=== PATIENT | male | born 1955 | race Caucasian/White ===

== ENCOUNTER 2016-05-04 14:50 | Observation (INO) | payer OTHER ==
[2016-05-04] MEDS ORDERED: Zofran 4 MG/2 ML VIAL IV ONE (15:13)
[2016-05-04] MEDS ORDERED: Sodium Chloride 0.9% 1000 ML 1,000 ML IV STA (15:13)
[2016-05-04] MEDS ORDERED: Sodium Chloride 0.9% 1000 ML 1,000 ML ONE (15:14)
[2016-05-04] MEDS ORDERED: Zofran 4 MG/2 ML VIAL ONE (15:14)
--- NOTE | 2016-05-04 15:19 | ERPHSYRPT ---
- History of Present Illness Time Seen by Provider: 05/04/16 15:09 Historian: patient, family () Patient Subjective Stated Complaint: vomiting and diarrhea since 1630 yesterday Triage Nursing Assessment: started at 1630 yesterday. vomiting and diarrhea since. c/o generalized achiness to legs, back, head, and abd. no fever. abd soft. bs hypoactive. Physician History: CC: vomiting Hx: 60 y/o healthy male patient with vomiting since yesterday. He has some non- bloody diarrhea. Minimal fever. Some cramping abdominal pain. Hx of prior ileus. Feels dry. A little light-headed. Symptoms moderately severe. Severity of Pain-Max: moderate Severity of Pain-Current: moderate Allergies/Adverse Reactions: NKA Allergy (Verified 05/04/16 14:56) Home Medications: Ezetimibe/Simvastatin [Vytorin 10-20 mg Tablet] 1 each PO DAILY 05/04/16 [ History] Hx Tetanus, Diphtheria Vaccination/Date Given: Yes Hx Influenza Vaccination/Date Given: Yes Hx Pneumococcal Vaccination/Date Given: No Immunizations Up to Date: Yes - Review of Systems Constitutional: Fever (low grade), Fatigue, Malaise Eyes: No Symptoms Ears, Nose, & Throat: No Symptoms Respiratory: No Cough Abdominal/Gastrointestinal: Nausea, Vomiting, Diarrhea Genitourinary Symptoms: No Dysuria Musculoskeletal: Myalgias Skin: No Rash Neurological: Headache (mild) All Other Systems: Reviewed and Negative - Past Medical History Pertinent Past Medical History: Yes Cardiac History: High Cholesterol Other Medical History: small bowel obstruction x2 - Past Surgical History Past Surgical History: Yes Other Surgical History: tonsils - Social History Smoking Status: Current every day smoker Exposure to second hand smoke: No Drug Use: none Patient Lives Alone: No Significant Family History: no pertinent family hx - Nursing Vital Signs Nursing Vital Signs: Initial Vital Signs Temperature 98.9 F Temperature Source Oral Pulse Rate 87 Respiratory Rate 18 Blood Pressure [Left Arm] 122/79 Pain Intensity 8 - Physical Exam General Appearance: alert, other (pale appearing) Eye Exam: PERRL/EOMI Ears, Nose, Throat Exam: normal ENT inspection, dry mucous membranes Neck Exam: normal inspection, non-tender, supple Respiratory Exam: normal breath sounds, lungs clear Cardiovascular Exam: regular rate/rhythm, tachycardia Gastrointestinal/Abdomen Exam: soft, No tenderness, No distention, No mass, No guarding Extremity Exam: normal inspection, No pedal edema Neurologic Exam: alert, oriented x 3, cooperative, sensation nml, No motor deficits Skin Exam: warm, dry, pale, No rash SpO2 Interpretation: normal SpO2: 95 Oxygen Delivery: Room Air - Course Nursing assessment & vital signs reviewed: Yes - Radiology Exams AAS X-ray Interpretation: Discussed w/ radiologist ([facility]BO) - CT Exams abd/pelvis CT Interpretation: Tele-radiologist Report (ileus vs enteritis) Ordered Tests: Active Orders 24 hr Category Date Time Status IV Insertion STAT Care 05/04/16 15:13 Active ABDOMEN AND PELVIS W CONTRAST [CT] Stat Exams 05/04/16 15:52 Completed OBSTR/ACUTE ABDOMEN SERIES Stat Exams 05/04/16 15:14 Completed CBC W DIFF Stat Lab 05/04/16 15:20 Completed CMP Stat Lab 05/04/16 15:20 Completed Manual Differential NC Stat Lab 05/04/16 15:20 Completed UA Stat Lab 05/04/16 15:13 Ordered Medication Summary Discontinued Medications Generic Name Dose Route Start Last Admin Trade Name Freq PRN Reason Stop Dose Admin Diphenhydramine HCl 25 mg 05/04/16 16:53 05/04/16 16:57 Benadryl 50 Mg/Ml IV 05/04/16 16:54 25 mg STAT ONE Administration Diphenhydramine HCl Confirm 05/04/16 16:55 Benadryl 50 Mg/Ml Administered 05/04/16 16:56 Dose 50 mg .ROUTE .STK-MED ONE Hydromorphone HCl 1 mg 05/04/16 16:53 05/04/16 16:57 Hydromorphone 1 Mg/Ml Ampule IV 05/04/16 16:54 1 mg STAT ONE Administration Hydromorphone HCl Confirm 05/04/16 16:55 Hydromorphone 1 Mg/Ml Ampule Administered 05/04/16 16:56 Dose 1 mg .ROUTE .STK-MED ONE Sodium Chloride 1,000 mls @ 999 mls/hr 05/04/16 15:13 05/04/16 15:22 Sodium Chloride 0.9% 1000 Ml IV 05/04/16 16:13 999 mls/hr .Q1H1M STA Administration Sodium Chloride Confirm 05/04/16 15:14 Sodium Chloride 0.9% 1000 Ml Administered 05/04/16 15:15 Dose 1,000 mls @ ud .ROUTE .STK-MED ONE Lactated Ringer's 1,000 mls @ 999 mls/hr 05/04/16 16:26 05/04/16 16:27 Lactated Ringers IV 05/04/16 17:26 999 mls/hr .Q1H1M ONE Administration Lactated Ringer's Confirm 05/04/16 16:27 Lactated Ringers Administered 05/04/16 16:28 Dose 1,000 mls @ ud IV .STK-MED ONE Ondansetron HCl 4 mg 05/04/16 15:13 05/04/16 15:22 Zofran 4 Mg/2 Ml Vial IV 05/04/16 15:14 4 mg STAT ONE Administration Ondansetron HCl Confirm 05/04/16 15:14 Zofran 4 Mg/2 Ml Vial Administered 05/04/16 15:15 Dose 4 mg .ROUTE .STK-MED ONE Lab/Rad Data: Laboratory Result Diagrams 05/04/16 15:20 05/04/16 15:20 Laboratory Results 05/04/16 05/04/16 Range/Units 15:20 15:20 WBC 12.0 H (4.0-10.5) K/mm3 RBC 5.06 (4.1-5.6) M/mm3 Hgb 15.6 (12.5-18.0) gm/dl Hct 45.9 (42-50) % MCV 90.7 (78-100) fl MCH 30.8 (26-32) pg MCHC 34.0 (32-36) g/dl RDW 13.8 (11.5-14.0) % Plt Count 295 (150-450) K/mm3 MPV 10.4 H (6-9.5) fl Segmented Neutrophils 82 H (36.-66.) % Band Neutrophils 4 H (0.0-2.0) % Lymphocytes (Manual) 8 L (24-44) % Monocytes (Manual) 6 (0.0-12.0) % Differential Comment ABNORMAL Platelet Estimate NORMAL (NORMAL) Anisocytosis 1+ Sodium 141 (136-145) mEq/L Potassium 3.5 (3.5-5.1) mEq/L Chloride 102 (98-107) mEq/L Carbon Dioxide 22.0 (21-32) mEq/L Anion Gap 20.0 H (5-15) MEQ/L BUN 27 H (9-20) mg/dL Creatinine 1.31 H (0.55-1.30) mg/dl Estimated GFR 59 ML/MIN Glucose 129 H (70-110) MG/DL Calcium 9.0 (8.5-10.1) mg/dL Total Bilirubin 0.5 (0.2-1.0) mg/dL AST 27 (15-37) U/L ALT 32 (12-78) U/L Alkaline Phosphatase 64 (46-116) U/L Serum Total Protein 8.2 (6.4-8.2) gm/dL Albumin 4.4 (3.4-5.0) g/dL - Progress Progress Note: 05/04/16 17:41 Some better with meds and IVF. No vomiting here yet. This is very similar to prior episodes. Called Dr Ceballos for Jonatan and will place in obs. Will see patient in: hospital (observation) Counseled pt/family regarding: lab results, diagnosis, need for follow-up, rad results - Departure Time of Disposition: 17:42 Departure Disposition: Observation Clinical Impression: Mechanical ileus, Enteritis, Vomiting Condition: Stable Critical Care Time: No Referrals: JORDEN RING MD [Primary Care Provider] -
[2016-05-04 15:32] LABS: Mean Cell Volume 90.7 fl (78-100); Mean Corpuscular Hemoglobin 30.8 pg (26-32); Mean Platelet Volume 10.4 fl (6-9.5); Platelet Count 295 K/mm3 (150-450); Red Blood Count 5.06 M/mm3 (4.1-5.6); Red Cell Distribution Width 13.8 % (11.5-14.0)
--- NOTE | 2016-05-04 15:44 | XRAY ---
Indication: Abdominal pain. Vomiting. 2 views of the abdomen again demonstrates mild air distended small bowel loops with both synchronous and asynchronous air fluid leveling. There is paucity of distal colonic bowel gas concerning for distal small bowel obstruction. No free air. Solid organs unremarkable. Osseous structures intact again with lower lumbar degenerative changes and left innominate bone island. Single PA chest again hyperinflated with tiny calcified granulomas. No infiltrate, consolidation, or large effusion. Heart is not enlarged. Bony thorax intact. Impression: 1. Again abnormal air distended small bowel loops with paucity of colonic bowel gas. Rule out distal small bowel obstruction. 2. Stable nonacute hyperinflated chest.
[2016-05-04 15:56] LABS: ALBUMIN 4.4 g/dL (3.4-5.0); BILIRUBIN,TOTAL 0.5 mg/dL (0.2-1.0); Potassium 3.5 mEq/L (3.5-5.1); Total Protein 8.2 gm/dL (6.4-8.2)
[2016-05-04 16:18] LABS: BAND 4 % (0.0-2.0); Total Cells Counted 100
[2016-05-04 16:19] LABS: ANISOCYTOSIS 1+; Platelet Estimate NORMAL (NORMAL)
[2016-05-04] MEDS ORDERED: Lactated Ringers 1,000 ML IV ONE ×2 (16:26→16:27)
[2016-05-04] MEDS ORDERED: BENADRYL 50 MG/ML IV ONE (16:53)
[2016-05-04] MEDS ORDERED: Hydromorphone 1 mg/ml Ampule IV ONE ×2 (16:53→17:51)
[2016-05-04] MEDS ORDERED: BENADRYL 50 MG/ML ONE (16:55)
[2016-05-04] MEDS ORDERED: Hydromorphone 1 mg/ml Ampule ONE ×2 (16:55→17:50)
--- NOTE | 2016-05-04 17:21 | XRAY ---
Indication: Abdominal pain, vomiting, diarrhea, and fever. Possible small bowel obstruction on plain film. Multiple contiguous axial images obtained through the abdomen and pelvis using 80 cc of Isovue-370 contrast only. Comparison: April 05, 2009. Lung bases demonstrate stable right posterior calcified granuloma and fibrosis/scarring in the right middle and inferior lingula. No infiltrate, consolidation, or effusion. Heart is not enlarged. Mild distal esophageal circumferential wall thickening less than before concerning for esophagitis. Stomach is mildly fluid distended with normal appearing duodenum and proximal jejunum. The more distal jejunal and ileal bowel loops are abnormally fluid distended up to 4.3 cm in diameter with minimal bowel wall thickening/enhancement and synchronous fluid leveling, either enteritis versus ileus. Normal colonic bowel gas and minimal sigmoid diverticulosis. Normal appendix. No free fluid/air. Stable subcentimeter right hepatic cyst. Remaining liver, gallbladder, pancreas, spleen, adrenal glands, kidneys, ureters, and bladder appear normal in CT appearance and attenuation. Again the mild aortoiliac calcifications. No AAA or pathological retroperitoneal lymphadenopathy. Osseous structures intact again with L4-S1 degenerative disc disease, worsened at the L4-L5 level. Impression: 1. Again abnormal fluid distended small bowel loops with synchronous fluid leveling and wall thickening/enhancement, enteritis versus ileus. No focal bowel dilatation/obstruction. 2. Stable minimal sigmoid diverticulosis and hepatic cyst. 3. Distal esophageal circumferential wall thickening less than before. Rule out reflux esophagitis. CTDI 20.25
[2016-05-04] MEDS ORDERED: Zofran 4 MG/2 ML VIAL IV PRN (18:23)
[2016-05-04] MEDS: D5w/0.45NS W/ 40MEQ KCl 1000 Ml 1,000 ML IV SCH (18:29)
[2016-05-04 20:51] LABS: COMPLETE URINE MICROSCOPIC? YES; Collection Type CCMS; Mucus MODERATE /HPF (NEGATIVE); Ph 5.5 (5-6)
[2016-05-04] MEDS: DILAUDID 2 MG INJECTION IV PRN (23:26)
[2016-05-05] MEDS: D5w/0.45NS W/ 40MEQ KCl 1000 Ml 1,000 ML IV SCH ×3 (02:17→18:59)
[2016-05-05 05:39] LABS: BASOPHIL % 0.7 % (0.0-0.4); Eosinophil % 2.9 % (0.00-5.0); Granulocytes % 49.1 % (36.0-66.0); Lymphocytes % 28.2 % (24.0-44.0); Mean Cell Volume 93.6 fl (78-100); Mean Corpuscular Hemoglobin 30.6 pg (26-32); Mean Platelet Volume 10.4 fl (6-9.5); Monocytes % 19.1 % (0.0-12.0); Platelet Count 259 K/mm3 (150-450); Red Blood Count 4.22 M/mm3 (4.1-5.6); Red Cell Distribution Width 13.7 % (11.5-14.0); White Blood Count 4.5 K/mm3 (4.0-10.5)
[2016-05-05 06:11] LABS: ANION GAP 12.4 MEQ/L (5-15); BLOOD UREA NITROGEN 21 mg/dL (9-20); CHLORIDE 108 mEq/L (98-107); Carbon Dioxide 25.1 mEq/L (21-32); Glucose 95 MG/DL (70-110); Potassium 4.4 mEq/L (3.5-5.1); SODIUM 141 mEq/L (136-145)
--- NOTE | 2016-05-05 08:40 | XRAY ---
Indication: Ileus. Vomiting. Comparison: One day earlier. 2 views of the abdomen demonstrates again scattered small bowel air-fluid leveling diminished in caliber and number. Solid organs unremarkable. No new/acute findings.
--- NOTE | 2016-05-05 09:59 | PCM.HP ---
History of Present Illness - Chief Complaint Chief Complaint: vomiting History of Present Illness: is a 60 year old male who presented to the ER with vomiting, diarrhea and abdominal pain. His symptoms began the evening prior to arrival after work, he vomited all night and couldn't keep liquids down. Similar symptoms to an ileus he had 6 years ago. He feels much better after observation and hydration overnight, no more vomiting or diarrhea and pain is gone. - Review of Systems Constitutional: No Fever, No Chills Respiratory: No Cough, No Short Of Breath Cardiac: No Chest Pain, No Edema, No Syncope Abdominal/Gastrointestinal: Abdominal Pain, Nausea, Vomiting, Diarrhea Genitourinary Symptoms: No Dysuria Skin: No Rash All Other Systems: Reviewed and Negative Medications & Allergies Home Medications: Home Medication List Ezetimibe/Simvastatin [Vytorin 10-20 mg Tablet] 1 each PO EVENING MEAL 05/04/16 [History Confirmed 05/04/16] Allergies/Adverse Reactions: Allergies Allergy/AdvReac Type Severity Reaction Status Date / Time NKA Allergy Verified 05/04/16 14:56 - Past Medical History Past Medical History: Yes Neurological History: No Pertinent History ENT History: No Pertinent History Cardiac History: No Pertinent History, High Cholesterol Respiratory History: No Pertinent History Endocrine Medical History: No Pertinent History Musculoskelatal History: No Pertinent History GI Medical History: No Pertinent History History: No Pertinent History Pyscho-Social History: No Pertinent History Male Reproductive Disorders: No Pertinent History Comment: small bowel obstruction x2 - Past Surgical History Past Surgical History: Yes Neuro Surgical History: No Pertinent History Cardiac History: No Pertinent History Respiratory Surgery: No Pertinent History GI Surgical History: No Pertinent History Genitourinary Surgical Hx: No Pertinent History Musculskeletal Surgical Hx: No Pertinent History Male Surgical History: No Pertinent History Other Surgical History: tonsils - Social History Smoking Status: Light tobacco smoker How long have you smoked: 30 YEARS Exposure to second hand smoke: Yes Alcohol: Rarely Drug Use: none Significant Family History: no pertinent family hx - Physical Exam Vital Signs: Vital Signs - 24 hr Temp Pulse Resp BP Pulse Ox 05/05/16 08:00 98.3 F 59 L 20 94/57 91 L 05/05/16 04:00 97.9 F 61 16 111/66 94 L 05/05/16 00:00 98.5 F 66 15 104/60 94 L 05/04/16 19:55 98.8 F 75 16 117/72 92 L 05/04/16 18:05 84 18 114/76 05/04/16 18:04 99 F 79 18 136/68 90 L 05/04/16 17:43 95 05/04/16 17:03 87 18 122/79 05/04/16 16:50 88 18 103/58 05/04/16 16:48 88 18 118/71 05/04/16 15:55 65 18 113/61 05/04/16 14:51 98.9 F 113 H 18 129/84 95 General Appearance: no apparent distress, alert Respiratory Exam: normal breath sounds, lungs clear, No respiratory distress Cardiovascular Exam: regular rate/rhythm, normal heart sounds, normal peripheral pulses Gastrointestinal/Abdomen Exam: soft Extremity Exam: normal inspection, normal range of motion, pelvis stable Skin Exam: normal color, warm, dry, No rash Results - Labs Lab/Micro Results: Lab Results-Last 24 Hours 05/04/16 05/05/16 05/05/16 Range/Units 20:30 05:00 05:00 WBC 4.5 (4.0-10.5) K/mm3 RBC 4.22 (4.1-5.6) M/mm3 Hgb 12.9 (12.5-18.0) gm/dl Hct 39.5 L (42-50) % MCV 93.6 (78-100) fl MCH 30.6 (26-32) pg MCHC 32.7 (32-36) g/dl RDW 13.7 (11.5-14.0) % Plt Count 259 (150-450) K/mm3 MPV 10.4 H (6-9.5) fl Gran % 49.1 (36.0-66.0) % Lymphocytes % 28.2 (24.0-44.0) % Monocytes % 19.1 H (0.0-12.0) % Eosinophils % 2.9 (0.00-5.0) % Basophils % 0.7 (0.0-0.4) % Basophils # 0.03 (0-0.4) Sodium 141 (136-145) mEq/L Potassium 4.4 (3.5-5.1) mEq/L Chloride 108 H (98-107) mEq/L Carbon Dioxide 25.1 (21-32) mEq/L Anion Gap 12.4 (5-15) MEQ/L BUN 21 H (9-20) mg/dL Creatinine 1.08 (0.55-1.30) mg/dl Estimated GFR > 60 ML/MIN Glucose 95 (70-110) MG/DL Calcium 8.0 L (8.5-10.1) mg/dL Ur Collection Type CCMS Urine Color YELLOW (YELLOW) Urine Appearance CLEAR (CLEAR) Urine pH 5.5 (5-6) Ur Specific [place] 1.015 (1.005-1.025) Urine Protein NEGATIVE (Negative) Urine Glucose (UA) NEGATIVE (NEGATIVE) mg/dL Urine Ketones NEGATIVE (NEGATIVE) Urine Nitrite NEGATIVE (NEGATIVE) Urine Bilirubin NEGATIVE (NEGATIVE) Urine Urobilinogen 0.2 (0-1) mg/dL Urine WBC (Auto) NEGATIVE (NEGATIVE) Urine RBC (Auto) TRACE-LYSED (0-5) Venkat/ul Urine Mucus MODERATE (NEGATIVE) /HPF Specimen Received 05-04-16 2030 - Other Procedures and Tests Respiratory Therapy 05/04/16 18:19 Smoking Cessation Education ONCE Assessment/Plan (1) Enteritis Current Visit: Yes Status: Acute Assessment & Plan: likely viral gastroenteritis that spurred ileus, will start clear liquids and advance as tolerated this am. patient has a benign exam, soft nontender abdomen with normal bowel sounds. Code(s): K52.9 - NONINFECTIVE GASTROENTERITIS AND COLITIS, UNSPECIFIED (2) Mechanical ileus Current Visit: Yes Status: Acute Code(s): K56.69 - OTHER INTESTINAL OBSTRUCTION (3) Vomiting Current Visit: Yes Status: Acute Code(s): R11.10 - VOMITING, UNSPECIFIED
[2016-05-05] MEDS: DILAUDID 2 MG INJECTION IV PRN (14:53)
[2016-05-05] MEDS ORDERED: Pepcid 20 MG PO ONE (15:40)
[2016-05-06] MEDS: D5w/0.45NS W/ 40MEQ KCl 1000 Ml 1,000 ML IV SCH (04:28)
[2016-05-06 07:34] VITALS: BP 103/54; PULSE 51; O2SAT 96
--- NOTE | 2016-05-06 07:39 | PCM.DS ---
Discharge Summary Date of Admission: 05/04/16 17:53 Admitting Physician: JORDEN RING Primary Care Provider: JORDEN RING Allergies Allergies NKA Allergy (Verified 05/04/16 14:56) Hospital Summary - Hospital Course Hospital Course: patient was admitted with vomiting, diarrhea, abdominal pain and ileus. resolved quickly after admission, he is tolerating po intake with no problems at this time. he feels much better - Vitals & Intake/Output Vital Signs: Vital Signs Temperature 98.7 F 05/06/16 07:34 Pulse Rate 51 L 05/06/16 07:34 Respiratory Rate 15 05/06/16 07:34 Blood Pressure 103/54 05/06/16 07:34 O2 Sat by Pulse Oximetry 96 05/06/16 07:34 Intake & Output: Intake & Output 05/03/16 05/04/16 05/05/16 05/06/16 11:59 11:59 11:59 11:59 Intake Total 1162 2734 Output Total 600 Balance 562 2734 Weight 86.364 kg - Lab Result Diagrams: 05/05/16 05:00 05/05/16 05:00 - Procedures and Test Procedures and Tests throughout Hospitalization: Therapy Orders & Screens 05/04/16 18:19 Smoking Cessation Education ONCE Comment: Diagnosis: ABD PAIN Smoking Status: Light tobacco smoker How long have you smoked: 30 YEARS Have you smoked in the past 12 months: Yes Approximately how many cigarettes per day: 2 CIGS Do you dip or chew tobacco: No Discharge Exam General Appearance: no apparent distress, alert Skin Exam: normal color, warm, dry Respiratory Exam: normal breath sounds, lungs clear, No respiratory distress Cardiovascular Exam: regular rate/rhythm, normal heart sounds Gastrointestinal/Abdomen Exam: soft, No tenderness, No mass Extremity Exam: normal inspection, normal range of motion Final Diagnosis/Problem List - Final Discharge Diagnosis/Problem (1) Enteritis Current Visit: Yes Status: Acute (2) Mechanical ileus Current Visit: Yes Status: Acute (3) Vomiting Current Visit: Yes Status: Acute - Discharge Disposition: Home, Self-Care Condition: Stable Prescriptions: New Ondansetron HCl [Zofran] 4 mg PO TID PRN #20 tablet Continue Ezetimibe/Simvastatin [Vytorin 10-20 mg Tablet] 1 each PO EVENING MEAL Instructions: Abdominal Pain-Adult, Diarrhea and Traveler's Diarrhea -- Adult, Nausea -- Adult, Vomiting -- Adult Follow up with: JORDEN RING MD [Primary Care Provider] - Forms: Discharge Instructions, Patient Portal Information
[2016-05-06] MEDS ORDERED: EZETIMIBE PO SCH (18:00)
[2016-05-06] MEDS ORDERED: SIMVASTATIN PO SCH (18:00)
== END 2016-05-06 08:50 | disposition home or self-care (01) ==
LOC: ED 14:50 → MED SURG 17:53
PROVIDERS: ADMIT Family Medicine; ATTEND Family Medicine
DX: K52.9 Noninfective gastroenteritis and colitis, unspecified (principal); K56.69 Other intestinal obstruction; Z72.0 Tobacco use
CPT/HCPCS: 36000; 36415; 74020; 74022; 74177; 80048; 80053; 81000; 85025; 96360; 96361; 96374; 96375; 96376; 99285; G0378; J1170; J1200; J2405; A9270-GY

== ENCOUNTER 2017-02-18 06:04 | Day surgery (SDC) | payer OTHER ==
[~2017-02-18 06:04] MED LIST: Lactated Ringers 1,000 ML IV SCH
[2017-02-18] MEDS ORDERED: Lactated Ringers 1,000 ML IV ONE (07:28)
--- NOTE | 2017-02-18 08:27 | OP ---
SURGERY DATE: 02/18/17 SURGERY TIME: 0700 PREOPERATIVE DIAGNOSIS: 1. HISTORY OF COLON POLYPS. POSTOPERATIVE DIAGNOSIS: 1. NORMAL COLON. PROCEDURE: 1. Colonoscopy. SURGEON: Dr. Jaleel Cheung. ANESTHESIA: MAC by Jim Rene CRNA. SPECIMENS: None. ESTIMATED BLOOD LOSS: None. DESCRIPTION OF PROCEDURE: After informed written consent was obtained, the patient was taken to the endoscopy suite. He underwent monitored anesthesia and a digital rectal exam showed normal sphincter tone and no internal lesions. The scope was inserted in the rectum and sequentially the entire colonic mucosa was traversed. The level of the cecum was reached and verified with direct visualization of the ileocecal valve. Upon withdrawal, careful mucosal inspection revealed no gross abnormalities. Prior to withdrawal, retroflexion showed no internal lesions. The scope was removed and the patient was transferred to the recovery room in excellent condition.
[2017-02-18 09:04] VITALS: BP 127/72; PULSE 61; O2SAT 97
== END 2017-02-18 09:00 | disposition home or self-care (01) ==
LOC: SDC 06:04
PROVIDERS: ATTEND Family Medicine
PROC: 0DJD8ZZ Inspection of Lower Intestinal Tract, Via Natural or Artificial Opening Endoscopic (ICD-10-PCS; principal; 2017-02-18)
DX: Z86.010 Personal history of colon polyps (principal); E78.5 Hyperlipidemia, unspecified
CPT/HCPCS: 810